=== PATIENT | female | born 1980 | race Caucasian/White ===

== ENCOUNTER → 2016-10-26 | Outpatient (CLI) | payer OTHER ==
--- NOTE | 2016-10-26 09:36 | US ---
October 26, 2016 Dear Ms. Jordana Mahajan, Thank you for requesting consultation and a detailed obstetrical ultrasound for Mrs. Soto se condary to advanced maternal age. As you know, Jacob is a 36 year old G 2, P 1001 . Her due date is 03/14/17 by LMP and 13 week ultrasound. Her current gestational age based on this dating is 20 we eks 1 days. Her genetic screening revealed a reassuring NIPT. She has a history of LEEP at age 22 a nd then had a successful postterm delivered vaginally. The course was complicat ed by hemorrhage. ULTRASOUND Number of fetuses: 1 Placental location: Anterior; no evidence of previa Placental cord insertion: Intraplacental presentation: Variable Cervix: 3.6 cm viewed transabdominally Maximum Vertical Pocket: 3.0 cm The adnexa were evaluated. No pathology was seen. Right ovary is not seen on today's ultrasound. Left ovary is not seen on today's ultrasound. MEASUREMENTS: Biparietal diameter: 46 mm 20 weeks, 0 days Head circumference: 175 mm 20 weeks, 0 days Abdominal circumference: 154 mm 20 weeks, 5 days Femur length: 32 mm 20 weeks, 0 days Humerus length: 32 mm 20 weeks, 5 days Transcerebellar diameter: 22 mm 20 weeks, 5 days Average ultrasound age: 20 weeks, 2 days Estimated weight: 343 gm weight percentile: 53% ANATOMY Supratentorial brain: Normal including views of the falx, cavum septum pellucidum and choroids Lateral Ventricle: Normal, measuring 4.9 mm Posterior fossa: Normal including the cerebellum and cisterna magna Spine: Normal Nuchal fold: 4.3 mm normal Face: Normal views of the lip and nose area Profile: Normal Palate: Normal appearance of the alveolar ridge Cardiac Exam: Four chamber view of the heart: Normal including intraventricular septum Left Ventricular Outflow Tract: Normal Right Ventricular Outflow Tract: Normal 3 Vessel View: Normal Tracheal View: Normal Aortic Arch: Normal Ductal Arch: Normal SVC/IVC: Normal Heart Rate: 161 bpm Diaphragm: No overt abnormalities have been detected Stomach: Normal Umbilical cord insertion: Normal Right kidney: Normal Left kidney: Normal Bladder: Normal Number of cord vessels: Three Upper extremities: Normal including the number, and architecture Lower extremities: Normal including the number and architecture Gender: Undisclosed; "Normal" IMPRESSION: 1. Intrauterine at 20 w 1 d, SUKHWINDER of 03/14/17. This is consistent with her previously esta blished dates. 2. Today's sonogram reveals a normal appearing fetus. 3. Cervical length measures 3.6 cm, and is without evidence of insufficiency. 4. Advanced maternal age 5. History of LEEP 6. History of hemorrhage RECOMMENDATIONS: I was pleased to review today's ultrasound with your patient. I have reassured her that the gr owth and amniotic fluid volume are appropriate for this gestational age. The detailed anatomic surve y did not reveal any overt abnormalities. Jacob is aware that ultrasound is a screening tool and cannot provide definitive genetic diagnosis. Should she desire definitive genetic diagnosis, [facility] [place] would need to have a genetic amniocentesis performed. After our discussion regarding the procedure , benefits, risks, alternatives, and limitations to the information received Jacob DECLINES amniocen tesis. Future ultrasound and consultation is left to your clinical discretion. Thank you for allowing me the opportunity to consult and evaluate your patient. Should you have any questions or concerns please do not hesitate to contact me. This visit was approximately 15 minutes in length with 10 minutes spent in direct face to face consultation reviewing aneuploidy screening ve rsus definitive genetic diagnosis. Sincerely, Concepcion Hayden MD Security Operations Specialist Maternal Medicine Department of Obstetrics & Gynecology [facility]
--- NOTE | 2016-10-26 11:09 | US ---
OB Sonogram History: 20 weeks 1 day, SUKHWINDER March 14, 2017, check growth and anatomy, history of LEEP, advanced mater nal age Comparison: September 07, 2016 Findings: The fetus is in variable lie. The cervix is closed measuring 3.6 cm in length transabdomina lly. The placenta is anterior without previa. The lower margin of the placenta is approximately 3.4 c m above the internal os. The umbilical cord inserts normally into the placenta. It has 3 vessels. The re is no evidence for placental prematurity. Maximum amniotic fluid pocket = 3 cm. The heart is 4 chambered and has a rate of 161 bpm. The right and left ventricular outflo w tracts and interventricular septum appear normal. Fluid is identified in the stomach and feta l urinary bladder. The visualized intracranial contents, face and spine look normal . The umbilical cord insertion site is normal. renal region looks normal. 4 extremities a re visualized. BPD = 46 mm = 20 weeks 0 days Head circumference = 175 mm = 20 weeks 0 days Abdominal circumference = 154 mm = 20 weeks 5 days Femur length = 32 mm = 20 weeks 0 days Humeral length = 32 mm = 20 weeks 5 days Cerebellar width = 22 mm = 20 weeks 5 days Cisterna magna = 6 mm Estimated weight = 53 percentile Average gestational age by ultrasound = 20 weeks 2 days SUKHWINDER by ultrasound = March 13, 2017 Impression: 1. Size consistent with dates. No anatomical abnormality identified. 3. Normal cervical length of 3.6 cm This report should be read in conjunction with a consultation by Dr. Jordana Mahajan.
== END ==
LOC: FIMAGING 08:01
PROVIDERS: ATTEND Midwife
DX: O09.522 Supervision of elderly multigravida, second trimester (principal); Z3A.20 20 weeks gestation of pregnancy

== ENCOUNTER 2017-03-15 03:20 | Inpatient (IN) | payer OTHER ==
[2017-03-15] MEDS ORDERED: OLIVE OIL 118 ML BTL MISC PRN (03:37)
[2017-03-15] MEDS ORDERED: LR 1,000 ML IV PRN (03:37)
[2017-03-15] MEDS ORDERED: EPSOM SALT 454 GM TP PRN (03:37)
[2017-03-15] MEDS ORDERED: OXYTOCIN/RINGERS LACTATE 1,000 ML IV PRN (03:37)
[2017-03-15] MEDS ORDERED: TERBUTALINE SULFATE 1 MG/ML VIAL IV PRN (03:37)
[2017-03-15] MEDS ORDERED: fentaNYL 2MCG/ML/BUP 0.1% RTU 100 ML BAG EP ONE (04:14)
[2017-03-15] MEDS ORDERED: fentaNYL 100 MCG/2 ML INJ ONE (04:14)
[2017-03-15] MEDS ORDERED: BUPIVACAINE 0.25% 30 ML SDV ONE (04:15)
[2017-03-15 04:19] LABS: % IMMATURE GRANULYOCYTES 0.4 % (0.0-1.1); ABSOLUTE IMMATURE GRANULOCYTES 0.05 10^3/uL (0.00-0.10); ADD DIFF? NO; ADD MORPH? NO; ADD SCAN? NO; ATYPICAL LYMPHOCYTE FLAG 0 (0-99); FRAGMENT RBC FLAG 0 (0-99); HEMATOCRIT 35.9 % (38.0-47.0); LEFT SHIFT FLG 0 (0-99); LIPEMIA HEMOLYSIS FLAG 80 (0-99); MEAN CELL HEMOGLOBIN 29.9 pg (27.9-34.1); MEAN CELL HEMOGLOBIN CONCENTR. 33.4 g/dL (32.4-36.7); MEAN CELL VOLUME 89.5 fL (81.5-99.8); MEAN PLATELET VOLUME 12.4 fL (8.7-11.7); PLATELET CLUMPS FLAG 0 (0-99); PLATELET COUNT 157 10^3/uL (150-400); RED BLOOD CELL COUNT 4.01 10^6/uL (4.18-5.33); RED CELL DISTRIBUTION WIDTH 12.6 % (11.5-15.2)
[2017-03-15] MEDS ORDERED: PHENYLEPHRINE HCL 100 MCG/ML SYR IVP PRN (04:59)
[2017-03-15] MEDS ORDERED: fentaNYL 2MCG/ML/BUP 0.1% RTU 100 ML EP SCH (05:00)
[2017-03-15] MEDS ORDERED: LR 500 ML IV SCH (05:00)
[2017-03-15] MEDS ORDERED: LIDOCAINE 1% 300 MG/30 ML SDV ONE (05:40)
[2017-03-15] MEDS ORDERED: AMMONIA AROMATIC 1 EACH AMP IH ONE (05:41)
[2017-03-15] MEDS ORDERED: OLIVE OIL 118 ML BTL ONE (05:41)
[2017-03-15] MEDS ORDERED: TERBUTALINE SULFATE 1 MG/ML VIAL ONE (05:41)
[2017-03-15] MEDS ORDERED: OXYTOCIN 10 UNIT/ML VIAL ONE (05:42)
[2017-03-15] MEDS ORDERED: MISOPROSTOL 200 MCG TAB ONE (05:42)
[2017-03-15] MEDS ORDERED: HYDROCORTISONE 0.5% CREAM TP PRN (07:12)
[2017-03-15] MEDS ORDERED: SIMETHICONE 80 MG TAB CHEW PO PRN (07:12)
--- NOTE | 2017-03-15 07:22 | OBDEL ---
Info Type: Vaginal GBS+: No Indications for Delivery: Spontaneous Labor Vaginal Delivery - Labor and Delivery Onset of Contractions Date: 03/15/17 Onset of Contractions Time: 00:01 Onset of Contractions Type: Spontaneous Rupture of Membranes Date: 03/15/17 Rupture of Membranes Time: 05:59 Rupture of Membranes Type: Artificial Amniotic Fluid Color: Clear Dilation Complete Date: 03/15/17 Dilation Complete Time: 06:20 Placenta Delivery Date: 03/15/17 Non-surgical Procedures: Amniotomy Laceration: 1st Degree Repair: 3-0, Vicryl Vaginal Sponge Count Correct: Yes Vaginal Needle Count Correct: Yes Vaginal Sweep Performed: No EBL: 200 ml Delivery Events: None Delivery Comment: bedside US done to evaluate endometrial canal, no evidence of retained placenta , uterine sweep reveals no retained placenta (done for history of emergent d&c for retained placenta) - Medications Labor Augmentation/Induction Methods Used: None [place] [facility] [employer] Delivery Date: 03/15/17 Delivery Time: 06:31 SUKHWINDER: 03/14/17 Gestational Age: 40 week(s) and 1 day(s) Sex of Infant: Female Score (1 Min): 8 Score (5 Min): 9 ICD10 Worksheet Patient Problems: Problems Problem Status Onset Active labor Acute
[2017-03-15] MEDS: GENTAMICIN 0.3% OPHT DROPS 5ML EACHEYE SCH ×4 (09:15→22:00)
[2017-03-15] MEDS: IBUPROFEN 600 MG TAB PO PRN ×3 (10:19→22:47)
[2017-03-15] MEDS ORDERED: guaiFENesin 200 MG/10 ML UDL PO PRN (16:02)
[2017-03-15] MEDS: ACETAMINOPHEN 325 MG TAB PO PRN (20:44)
[2017-03-16] MEDS: GENTAMICIN 0.3% OPHT DROPS 5ML EACHEYE SCH ×6 (02:05→22:23)
[2017-03-16] MEDS: IBUPROFEN 600 MG TAB PO PRN ×3 (06:25→18:59)
[2017-03-16 09:10] VITALS: O2SAT 95
[2017-03-16] MEDS: DOCUSATE SODIUM 100 MG CAP PO PRN ×2 (09:21→20:59)
--- NOTE | 2017-03-16 13:01 | OBPROG ---
OBG Labor Progress Note Assessment/Plan: Assessment: 37 yo s/p , doing well, ppd 1. Plan: 03/16/17 13:00 Routine care. RH +, home tomorrow. Subjective: 37 yo s/p , doing well, ppd 1. Objective: 03/15/17 03:55 Patient ABO/Rh A POSITIVE 03/15/17 03:55 Temp Pulse Resp BP Pulse Ox 36.9 C 87 17 123/79 H 95 03/16/17 09:08 03/16/17 09:08 03/16/17 09:08 03/16/17 09:08 03/16/17 09:08 - SVE Dilation Complete Date: 03/15/17 Dilation Complete Time: 06:20 - Procedures Non-surgical Procedures: Amniotomy - Physical Exam Respiratory: lungs clear Cardiac/Chest: regular rate, rhythm Abdomen: hypoactive bowel sounds Extremities: non-tender Skin: warm/dry Neuro/Psych: oriented x 3 Oxytocin Orders Assessment - Pre-Induction/Augmentation Assessment Gestational Age: 40 week(s) and 1 day(s) ICD10 Worksheet Patient Problems: Problems Problem Status Onset Active labor Acute
[2017-03-16] MEDS: ACETAMINOPHEN 325 MG TAB PO PRN (20:59)
[2017-03-16 21:28] VITALS: BP 125/77; PULSE 90; RESP 16; TEMP 99.1
[2017-03-17] MEDS: IBUPROFEN 600 MG TAB PO PRN ×2 (00:48→08:36)
[2017-03-17] MEDS: GENTAMICIN 0.3% OPHT DROPS 5ML EACHEYE SCH ×2 (02:42→08:41)
--- NOTE | 2017-03-17 07:56 | OBGCSDC ---
General Delivery Information - General Info : 2 Para: 2 Delivery Physician/CNM: Libia Vuong Admission Date: 03/15/17 Labs: Patient ABO/Rh A POSITIVE 03/15/17 03:55 Hct 35.9 % (38.0-47.0) L 03/15/17 03:55 Vaginal - Diagnosis Labor: Spontaneous Rupture of Membranes Type: Artificial Amniotic Fluid Color: Clear Laceration: 1st Degree Repair: 3-0, Vicryl Delivery Events: None - Operations/Procedures Non-surgical Procedures: Amniotomy L&D Analgesia/Anesthesia Type: Epidural - Delivery Non-surgical Procedures: Amniotomy L&D Analgesia/Anesthesia Type: Epidural Data [employer] Delivery Date: 03/15/17 Delivery Time: 06:31 SUKHWINDER: 03/14/17 Gestational Age: 40 week(s) and 3 day(s) Sex of : Female [place] Weight (gm): 3340 g Score (1 Min): 8 Score (5 Min): 8 Discharge Information - Discharge Information Discharge Medications: Ibuprofen, Vitamins Condition: Good Instruction/Follow Up: Six Weeks Discharge Physician/CNM: Emilie Lang
[2017-03-17] MEDS ORDERED: AZITHROMYCIN 250 MG TAB PO ONE ×2 (08:30→11:15)
[2017-03-17] MEDS: DOCUSATE SODIUM 100 MG CAP PO PRN (08:37)
[2017-03-17] MEDS ORDERED: AZITHROMYCIN 250 MG TAB PO SCH (09:00)
== END 2017-03-17 13:00 | disposition home or self-care (01) | DRG 775 ==
LOC: OBSVTOIN 03:20 → FLD 03:20 → FOB 09:18
PROVIDERS: ADMIT Obstetrics & Gynecology; ATTEND Obstetrics & Gynecology
DX: O48.0 Post-term pregnancy (principal); O70.0 First degree perineal laceration during delivery; Z3A.40 40 weeks gestation of pregnancy; Z37.0 Single live birth
CPT/HCPCS: J2590; J3010; J3105